=== PATIENT | female | born 1975 | race Caucasian/White ===

== ENCOUNTER 2016-07-15 05:20 | Inpatient (IN) | payer BC ==
[2016-07-15] VITALS (11 sets, daily range): BP systolic 123–139; BP diastolic 68–86
[~2016-07-15] VITALS: Ht 162.6 cm; Wt 69.9 kg
[~2016-07-15 05:20] MED LIST: IRON325 M1 PO; LO-DOSE ASPIRIN81 M2 PO; PRENATAL TABLE1 EAC3 PO; VITAMIN B122500 MCG PO; VITAMIN D400 UNIT PO
[2016-07-15 05:51] LABS: MCH 28.1 PG (29.0-34.0); MCV 87.7 FL (83-99); MEAN PLAT.VOLUME 9.6 uM^3 (9.5-12.4); PLATELET COUNT 325 K/uL (156-360); RBC DIS.WIDTH-CV 14.6 % (11.8-14.6); RBC DIS.WIDTH-SD 47.3 % (39-53); RED BLOOD COUNT 4.56 M/uL (3.80-5.20); WHITE BLOOD COUNT 11.7 K/uL (4.1-10.2)
[2016-07-15] MEDS ORDERED: FEOSOL325 MG PO (07:27)
[2016-07-15] MEDS ORDERED: DOCUSATE SODIU100 MG PO (08:53)
[2016-07-15] MEDS ORDERED: ENDOCET 5-3251 EACH PO (08:54)
[2016-07-15] MEDS ORDERED: IBUPROFEN800 MG PO (08:54)
[2016-07-15] MEDS ORDERED: VITAMIN B-12500 MC5 SL (10:55)
[2016-07-15] MEDS ORDERED: [UNRECOGNIZED DRUG - OTHER] PO (10:56)
[2016-07-16 02:27] VITALS: BP 127/62
[2016-07-16 07:47] VITALS: BP 126/70
[2016-07-16 07:47] LABS: EOSINOPHIL (%) 0.2 % (0-5); HEMATOCRIT 31.9 % (36.0-46.0); IMMATURE GRANULOCYTE (%) 0.6 % (0.0-0.7); IMMATURE GRANULOCYTE COUNT 0.1 K/uL; INSTRUMENT ABS NEUTROPHIL CT 14.4 K/uL; LYMPHOCYTE COUNT 1.2 K/uL (1.0-2.8); MCH 28.4 PG (29.0-34.0); MCV 88.9 FL (83-99); MEAN PLAT.VOLUME 10.3 uM^3 (9.5-12.4); MONOCYTE (%) 5.8 % (3-12); NEUTROPHIL (%) 86.1 % (45-76); NEUTROPHIL COUNT 14.4 K/uL (1.8-6.4); PLATELET COUNT 300 K/uL (156-360); RBC DIS.WIDTH-CV 14.6 % (11.8-14.6); RBC DIS.WIDTH-SD 47.5 % (39-53)
[2016-07-16 07:51] LABS: RED BLOOD COUNT 3.59 M/uL (3.80-5.20); WHITE BLOOD COUNT 16.7 K/uL (4.1-10.2)
[2016-07-16 10:39] VITALS: BP 129/71
[2016-07-16 14:46] VITALS: BP 138/77
[2016-07-16 19:26] VITALS: BP 123/73
[2016-07-16 23:06] VITALS: BP 136/74
[2016-07-17 07:26] VITALS: BP 140/65
[2016-07-17 22:50] VITALS: BP 132/73
[2016-07-18 07:23] VITALS: BP 126/80
[2016-07-18 14:52] VITALS: BP 142/75
[2016-07-18 23:17] VITALS: BP 125/84
[2016-07-19 08:45] VITALS: BP 124/68
== END 2016-07-19 13:40 | disposition home or self-care (01) | DRG 766 ==
LOC: 2WEST 05:20 → 2SOUTH 08:52 → 2WEST 07-19 13:40
PROVIDERS: Obstetrics & Gynecology
PROC: 10D00Z1 Extraction of Products of Conception, Low, Open Approach (ICD-10-PCS; principal; 2016-07-15)
DX: O34.13 Maternal care for benign tumor of corpus uteri, third trimester (principal); O16.4 Unspecified maternal hypertension, complicating childbirth; D25.9 Leiomyoma of uterus, unspecified; O99.344 Other mental disorders complicating childbirth; O32.1XX0 Maternal care for breech presentation, not applicable or unspecified; O99.824 Streptococcus B carrier state complicating childbirth; Z3A.39 39 weeks gestation of pregnancy; Z37.0 Single live birth; O99.52 Diseases of the respiratory system complicating childbirth; J45.909 Unspecified asthma, uncomplicated; F41.9 Anxiety disorder, unspecified; O09.513 Supervision of elderly primigravida, third trimester; O62.2 Other uterine inertia
CPT/HCPCS: 36415; 85025; 85027; 86900; 86901; 86920; J0690; J1100; J2274; J2405; J2590; J7120